=== PATIENT | female | born 1975 ===

== ENCOUNTER 2020-11-23 07:55 | Outpatient (RCR) | payer OTHER, SELFPAY ==
--- NOTE | 2020-11-23 09:53 | PTOPEVAL ---
Thank you for referring Yoana Barrow to [facility].? The patient is scheduled to be seen for therapy? ____x/week for ___ weeks. Please review, sign, date and return this plan of care SHERRY. I agree with and certify that the following plan of care is medically necessary. Referring Physician Date Admitting Provider: Attending Provider: Anastasia Harden, [employer] Referring Provider: *PT Outpatient Evaluation Start: 11/23/20 07:57 Freq: Status: Active Protocol: Document 11/23/20 07:57 ACR (Rec: 11/23/20 09:02 ACR [id number]) Therapy Assessment Status Assessment Status Assessment Status Evaluation Evaluation Information Problem Diagnosis adhesive capsulitis of left shoulder Onset 06/21/20 Subjective Information Patient states she thinks she Query Text:As Reported By Patient/ slept wrong on the shoulder Family and has numbness in the hands. She has gotten a cortizone shot which helped for a couple of weeks. Patient states she has not been using it as much and she has the most difficulty washing her back. Patient states that she fatigues a lot quicker than before. She states that she is still able to do everything she needs to do, but it hurts. Patient states that she is here for a 1 time visit for strength and motion per the MD . Prior Level of Function Activity Level (Last 3 Months) Occupation works in retail [employer] Activity of Daily Living Ability Independent Indoor/Home Mobility Independent Community Mobility Independent Stairs Ability Independent Functional Cognition (Planning, Shopping Independent , Taking Medications) Cooking Yes Cleaning Yes Laundry Yes Shopping Yes Driving Yes Pain Assessment Timing of Pain Assessment Timing of Pain Assessment Assessment Pain Scale Pain Scale Used Numeric (1 - 10) Self Report Pain Assessment Left Shoulder(s) Reported Pain Level 0 Pain Description Aching Greatest Pain Intensity 4 Pain Score Pain Score 0: Self Report Interventions Used Interventions Used By Clinicians
== END 2020-11-23 17:15 | disposition home or self-care (01) ==
LOC: CHSPT 07:55
PROVIDERS: PCP Family Medicine; Visit Provider Nurse Practitioner Family
DX: M75.02 Adhesive capsulitis of left shoulder (principal)
CPT/HCPCS: 97161